=== PATIENT | male | born 1975 | race African-American/Black ===

== ENCOUNTER 2019-02-15 17:04 | Emergency (ER) | payer SELFPAY ==
[~2019-02-15] VITALS: Ht 177.8 cm; Wt 81.6 kg
[~2019-02-15 17:04] MED LIST: CYCLOBENZAPRINE10 MG ORAL; IBUPROFEN600 MG ORAL; NKM
[2019-02-15 17:15] VITALS: BP 117/77
--- NOTE | 2019-02-15 17:24 | NUR ---
ED Nurse Note: pt walked in to ED due to irritation on left ear since last night. per pt, cleaning his ear with q-tips. denies any pain. AAO x4. respirations even and non-labored noted. will wait for the further order.
--- NOTE | 2019-02-15 17:29 | Emergency Room Report ---
History of Present Illness General Chief Complaint: Earache Source: Patient Present Illness HPI 43-year-old male patient presents the ER complaining of left ear pain and decreased hearing in that ear times 1 day. Reports he was using a Q-tip yesterday to try and get ear wax out of his ear when the symptoms began. Reports he also used Debrox without relief of symptoms. Denies ear drainage. Denies fever, chest pain, shortness of breath. Denies other aggravating or relieving factors. Allergies: Coded Allergies: No Known Allergies (Verified , 03/28/12) Patient History Past Medical History: see triage record Reviewed Nursing Documentation: PMH: Agreed; PSxH: Agreed Nursing Documentation-PMH Past Medical History: No Stated History Review of Systems All Other Systems: negative except mentioned in HPI Physical Exam Vital Signs Date Time Temp Pulse Resp B/P (MAP) Pulse Ox O2 Delivery O2 Flow Rate FiO2 02/15/19 17:15 98.4 78 14 117/77 97 Room Air Sp02 EP Interpretation: reviewed, normal General Appearance: well appearing, no apparent distress, alert, GCS 15, non- toxic Head: normocephalic, atraumatic Eyes: bilateral eye normal inspection, bilateral eye PERRL ENT: hearing grossly normal, normal pharynx, no angioedema, normal voice, TMs + canals normal, uvula midline, moist mucus membranes, other - Excessive cerumen bilaterally; no pain with ear pulling, no overlying erythema or edema over mastoid processes bilaterally Neck: full range of motion Respiratory: lungs clear, normal breath sounds, no rhonchi, no respiratory distress, no accessory muscle use, no wheezing, speaking full sentences Cardiovascular #1: regular rate, rhythm, no edema Neurologic: alert, oriented x3, responsive, motor strength/tone normal, sensory intact Psychiatric: mood/affect normal Skin: no rash Medical Decision Making PA Attestation Dr. Morrow is my supervising Physician whom patient management has been discussed with. Diagnostic Impression: Primary Impression: Cerumen impaction ER Course Pt presents to ED c/o left ear pain. DDX considered but are not limited to rhinitis, sinusitis, otitis media, otitis externa, cerumen impaction. VITAL SIGNS are WNL, patient is afebrile. ED INTERVENTIONS: PE shows impacted cerumen in ear. No mastoid swelling or erythema, no rash or vesicles on face. Patient ear cleaned and flushed with saline and hydrogen peroxide. Patient instructed not to use Q-tips. Ear exam following ear lavage shows with no erythema or edema consistent with otitis media or externa, no TM perforation. Follow-up with primary care provider for further treatment and referral. Discuss referral to ENT. ER precautions given. Patient has debrox, does not require Rx. DISCHARGE: At this time pt is stable for d/c to home. patient resting comfortably, no acute distress, nontoxic appearing, talking without difficulty, smiling. Patient to take medications as instructed Will provide with patient care instructions and any necessary prescriptions. Care plan and follow-up instructions provided. Patient instructed to follow-up with primary care in 3 - 5 days. Patient questions asked and answered. patient reports understanding and agreement treatment plan. ER precautions given. Patient instructed to return to ER immediately for any new or worsening of symptoms including but not limited to increasing SOB, persistent fever. - Please note that this Emergency Department Report was dictated using [employer] production assistant technology software, occasionally this can lead to erroneous entry secondary to interpretation by the dictation equipment. Last Vital Signs Date Time Temp Pulse Resp B/P (MAP) Pulse Ox O2 Delivery O2 Flow Rate FiO2 02/15/19 17:15 98.4 14 117/77 97 Room Air 02/15/19 17:15 78 Status: improved Disposition: HOME, SELF-CARE Condition: Stable Patient Instructions: Cerumen Impaction Additional Instructions: Followup with primary care provider in 3 -5 days. Request referral to ENT. Avoid swimming, does not use Q-tips in ear. Take medications as directed. Patient questions asked and answered. ER precautions given, patient instructed to return to ER immediately for any new or worsening of symptoms. Titus Marie Feb 15, 2019 17:29
[2019-02-15 18:02] VITALS: BP 127/70
--- NOTE | 2019-02-15 18:03 | NUR ---
ER DISCHARGE NOTE: Patient is cleared to be discharged per ERMD, pt is aox4, on room air, with stable vital signs. pt was given dc instructions, pt was able to verbalize understanding, pt id band removed. pt is able to ambulate with steady gait. pt took all belongings.
== END 2019-02-15 18:03 | disposition home or self-care (01) ==
LOC: EMR 17:39
DX: H61.22 Impacted cerumen, left ear (principal)
CPT/HCPCS: 99281